=== PATIENT | female | born 1955 | race Caucasian/White ===

== ENCOUNTER 2016-08-01 14:49 | Day surgery (SDC) | payer OTHER ==
[~2016-08-01] VITALS: Ht 157.5 cm; Wt 58.0 kg
[2016-08-01 15:58] VITALS: Ht 157.5 cm; Wt 58.0 kg
[2016-08-01] MEDS ORDERED: PROPOFOL 40 ML ONE (16:04)
[2016-08-01] MEDS ORDERED: PRED5 PO (16:07)
[2016-08-01] MEDS ORDERED: PANT40TA4 PO (16:07)
[2016-08-01] MEDS ORDERED: TRAM50TA2 PO (16:07)
[2016-08-01] MEDS ORDERED: TACR0.5C18 PO (16:07)
[2016-08-01] MEDS ORDERED: TACR1CAP26 PO (16:07)
[2016-08-01 17:15] VITALS: BP 157/70; PULSE 55; RESP 12
--- NOTE | 2016-08-01 17:45 | GILP ---
DATE OF PROCEDURE: NAME OF PROCEDURES: 1. Esophagogastroduodenoscopy and biopsy. 2. Colonoscopy. SURGEON: Radha Vaughn MD PREOPERATIVE DIAGNOSES: 1. Abdominal pain. 2. Screening colonoscopy. POSTOPERATIVE DIAGNOSES: 1. Gastritis with erosions. 2. Gastric mucosal biopsies were taken for Helicobacter pylori test. 3. Colonoscopy all the way to the cecum. 4. Internal hemorrhoids. 5. No colon neoplasm was identified. INDICATION FOR THE PROCEDURE: Mr. Faith Buckner is a 61-year-old female patient who had upper abdo julia pain not responding to therapy. The patient also needed screening colonoscopy. The procedures and possible complications were well explained to the patient. The patient understoo d and consented to the procedures. DESCRIPTION OF PROCEDURE: Under the influence of anesthesia, the gastroscope was carefully introduc ed into the esophagus, and under direct vision, it was advanced to the stomach and through the pylor us into duodenal bulb and descending duodenum. FINDINGS: ESOPHAGUS: The mucosa was normal. STOMACH: The patient had gastritis with erosions. Gastric mucosal biopsies were taken for H. pylor i test. DUODENUM: Normal. The colonoscope was carefully introduced in the rectum, and under direct vision, it was advanced all the way to the cecum. FINDINGS: The patient had internal hemorrhoids. No colon neoplasm was identified. The patient tolerated the procedures very well. There was no complication from the procedures. At the end of the procedures, she was awake with stable vital signs, and she was discharged home to the care of her family. IMPRESSION: Please see postoperative diagnosis. PLAN: 1. Continue omeprazole. 2. Add Zantac 300 mg p.o. at bedtime. 3. Next screening colonoscopy in 10 years. Dictated By: RADHA MARINO/RY Conf#: [id number] DID#: [id number]
== END 2016-08-01 17:35 | disposition home or self-care (01) ==
LOC: GIL 14:49
PROVIDERS: ATTEND Internal Medicine Gastroenterology
DX: Z12.11 Encounter for screening for malignant neoplasm of colon (principal); R10.9 Unspecified abdominal pain; K29.70 Gastritis, unspecified, without bleeding; K25.9 Gastric ulcer, unspecified as acute or chronic, without hemorrhage or perforation; K64.9 Unspecified hemorrhoids
CPT/HCPCS: 87081